=== PATIENT | female | born 1980 | race Caucasian/White ===

== ENCOUNTER 2017-04-10 13:39 | Outpatient (CLI) | payer BC ==
--- NOTE | 2017-04-10 16:53 | ULT ---
TRANSABDOMINAL AND TRANSVAGINAL PELVIC ULTRASOUND: 04/10/17 INDICATION: Heavy periods. TECHNIQUE: Jeronimo scale, color doppler and vascular duplex with spectral analysis was performed of the pelvis. FINDINGS: The uterus measures 12.3 x 6.7 x 4.7 cm. The endometrial strip measures 13.8 mm. Small amount of sim ple appearing fluid is seen within the endometrial canal. Right ovary measures 2.7 x 2.2 x 2.5 cm. L eft ovary measures 3.9 x 2.4 x 2.2 cm. There is a 1.9 x 2.3 cm mildly complex cyst within the right adnexa. No free fluid is evident. IMPRESSION: 1. Mildly complex cyst within the right ovary measuring up to 2.3 cm. This is likely reflective of a small hemorrhagic cyst. 2. Endometrial stripe at 13.8 mm is within normal limits for a premenopausal female. Small amou nt of simple appearing fluid is seen within the endometrial canal. 3. Normal appearing left adnexa. POS: [facility]
== END 2017-04-10 13:40 | disposition home or self-care (01) ==
LOC: ULT 13:39
PROVIDERS: ATTEND Family Medicine
DX: N92.0 Excessive and frequent menstruation with regular cycle (principal); N83.201 Unspecified ovarian cyst, right side
CPT/HCPCS: 76856

== ENCOUNTER 2017-08-02 11:49 | Outpatient (CLI) | payer BC | END 2017-08-02 11:50 | disposition home or self-care (01) | LOC: BICRAD 11:49 | PROVIDERS: ATTEND Family Medicine | DX: M25.571 Pain in right ankle and joints of right foot (principal) ==

== ENCOUNTER 2022-04-18 15:31 | Day surgery (SDC) | payer BC, SELFPAY ==
[2022-04-18] MEDS ORDERED: Scopolamine 1.5 mg/72 hour Patch ONE (15:56)
[2022-04-18 16:07] LABS: Hemoglobin 14.6 g/dL (12.0-16.0); Mean Corpuscular HGB CONC 33.1 g/dL (32.0-36.0); Mean Corpuscular Hemoglobin 30.5 pg (27.0-31.0); Mean Corpuscular Volume 92.3 fL (78.0-98.0); Mean Platelet Volume 7.1 fL (7.4-10.4); Platelet Count 299 thou/uL (130-400); RBC Distribution Width 11.3 % (11.5-14.5); Red Blood Cell (RBC) Count 4.77 mill/uL (4.20-5.40); White Blood Cell (WBC) Count 26.1 thou/uL (4.8-10.8)
[2022-04-18 16:27] LABS: Band 15 % (5-11); Lymphocytes 4 % (21-51); MDiff Complete? YES; Monocytes 8 % (0-10); Neutrophil 72 % (42-75); Platelet Morphology Comment Appears Adequate; RBC Morphology Normal; Reactive Lymphocytes 1 % (0-10)
[2022-04-18 16:50] LABS: Anion Gap 14 mmol/L (10-20); BUN (Urea Nitrogen) 7 mg/dL (7.0-18.7); Calc. Creatinine Clearance 0 mL/min (70-130); Calcium 9.3 mg/dL (7.8-10.44); Carbon Dioxide 25 mmol/L (22-29); Chloride 98 mmol/L (98-107); Estimated GFR 113; Glucose 130 mg/dL (70-105); Potassium 3.6 mmol/L (3.5-5.1); Sodium 133 mmol/L (136-145)
[2022-04-18] MEDS ORDERED: Ketorolac Tromethamine 30 MG/ML VIAL ONE (17:00)
[2022-04-18] MEDS ORDERED: EPINEPHrine 1 MG/ML AMP ONE (18:01)
[2022-04-18] MEDS ORDERED: Bupivacaine 0.25% HCL 30 ML VIAL ONE (18:01)
[2022-04-18] MEDS ORDERED: fentaNYL Citrate/PF 100 MCG/2 ML SYRINGE ONE (18:09)
[2022-04-18] MEDS ORDERED: Piperacillin/Tazobactam 3.375 GM VIAL ONE (18:17)
[2022-04-18] MEDS ORDERED: Sodium Chloride 0.9% 100 ML ONE (18:20)
[2022-04-18] MEDS ORDERED: Glycopyrrolate 0.2 MG/ML 5 ML SYRINGE ONE (18:31)
[2022-04-18] MEDS ORDERED: Ondansetron PF 4 MG/2 ML Vial ONE (18:31)
[2022-04-18] MEDS ORDERED: Rocuronium Bromide 10 MG/ML (10ML VIAL) ONE (18:31)
[2022-04-18] MEDS ORDERED: PHENYLEPHRINE-NS 100 MCG/ML 10 ML SYRINGE ONE (18:31)
[2022-04-18] MEDS ORDERED: Dexamethasone 20 MG/5 ML VIAL ONE (18:31)
[2022-04-18] MEDS ORDERED: NEOSTIGMINE 3 MG/3 ML SYR 3 MG/3 ML SYRINGE ONE (18:31)
[2022-04-18] MEDS ORDERED: PROPOFOL 200 MG/20 ML VIAL ONE (18:31)
[2022-04-18] MEDS ORDERED: Succinylcholine 200 MG/10 ml SYRINGE FS ONE (18:31)
[2022-04-18] MEDS ORDERED: Fentanyl 100 MCG/2 ML VIAL ONE (19:59)
== END 2022-04-18 21:20 | disposition home or self-care (01) ==
LOC: SDC 15:31
PROVIDERS: ATTEND Specialist
PROC: 0DTJ4ZZ Resection of Appendix, Percutaneous Endoscopic Approach (ICD-10-PCS; principal; 2022-04-18)
DX: K35.80 Unspecified acute appendicitis (principal); Z88.2 Allergy status to sulfonamides; Z20.822 Contact with and (suspected) exposure to COVID-19
CPT/HCPCS: 36415; 80048; 85025; 87811; 88304; A4649; J0171; J1100; J1885; J2405; J2543; J2704; J3010; J3490; S0020